=== PATIENT | male | born 1945 ===

== ENCOUNTER 2025-02-14 01:14 | Outpatient (CLI) | payer OTHER, SELFPAY ==
[2025-02-14] MEDS: Inhaler, Assist Device 1 EACH MC (14:04)
[2025-02-14] MEDS: Levalbuterol HFA 15 GM INH 4 PUFF IH (14:05)
--- NOTE | 2025-02-17 15:22 | W.PFT ---
Date of service: 02/14/25 Time of Service: 13:11 Pulmonary Function Test Result Indications: Asthma Interpretation Spirometry: There is moderate airflow limitation. There is a significant bronchodilator response. Impression Moderate airflow obstruction and a bronchodilator repsonse. Clinical Correlation therefore is recommended.
== END 2025-02-14 01:15 | disposition home or self-care (01) ==
LOC: RT 01:14
PROVIDERS: Visit Provider Student in an Organized Health Care Education/Training Program
DX: J45.909 Unspecified asthma, uncomplicated (principal)
CPT/HCPCS: 94060